=== PATIENT | female | born 1985 | race Hispanic/Latino ===

== ENCOUNTER → 2018-05-31 | Outpatient (CLI) | payer OTHER ==
--- NOTE | 2018-05-31 12:33 | Diagnostic Imaging Report ---
Exam: Abdominal film Clinical History: Calculus of kidney Comparison: MRI abdomen 11/14/2015 DISCUSSION: Frontal view of the abdomen shows a nonobstructive bowel gas pattern with minimal amount of retained stool.There are no dilated, air-filled loops of bowel. No radiopaque densities project over the renal shadows, expected course of the ureters or bladder. Multiple bilateral pelvic phleboliths are noted. No acute bony abnormalities. IMPRESSION: 1. Nonobstructive bowel gas pattern. 2. No suspicious calcifications project over the genitourinary system. The staff physician below has personally reviewed this exam on the date of dictation. Signed by: Dr. Lucas Carrasquillo M.D. on 05/31/2018 12:30 PM
== END ==
LOC: RAD 10:50
PROVIDERS: ATTEND Urology
DX: N20.0 Calculus of kidney (principal)
CPT/HCPCS: 74018

== ENCOUNTER → 2018-08-11 | Outpatient (CLI) | payer OTHER ==
[~2018-08-11] MED LIST: FUROSEMIDE INJ 10 MG/ML 4 ML VIAL ONE
--- NOTE | 2018-08-11 22:22 | Diagnostic Imaging Report ---
Renal Scan with Lasix [place]out Clinical information: 33 F with renal sclerosis and persistent renal calculi. Urethral sling procedure done in 03/2017. Comparison: Most recent prior renal scan with Lasix of 05/12/2017 Technique: Following intravenous administration of 11 mCi of Tc-99m MAG3, dynamic images of the kidneys in the posterior projection were obtained through 29 minutes. Lasix 40 mg was administered intravenously at 15 minutes post injection of the tracer. Report: Left kidney: Perfusion of the left kidney is prompt. The kidney has a normal reniform shape. Extraction of tracer from the blood pool is normal. Clearance of tracer from the renal parenchyma is prompt. The pelvicalyceal system is not dilated. Increased pooling of tracer is seen in the renal pelvis. Drainage of tracer from the pelvicalyceal system is adequate prior to administration of Lasix. No significant stasis of tracer is seen within the left ureter. Right kidney: Perfusion to the right kidney is prompt. The right kidney is generally smaller than the left kidney with narrowing of the lower pole. Extraction of tracer by the renal parenchyma is normal. Clearance of tracer from the renal parenchyma is prompt. The pelvicalyceal system is mildly dilated. Increased pooling of tracer within the pelvicalyceal system is seen, predominantly within the renal pelvis. Drainage of tracer from the pelvicalyceal system is adequate prior to administration of Lasix. No significant stasis of tracer is seen within the right ureter. Differential renal function: The left kidney contributes 57% of total renal function and the right kidney contributes 43% (normal 43-57%), previously, left 62% and right 38%. Impression: 1. The function of the left kidney is generally normal. No hydronephrosis is present. No physiologically significant obstruction of the renal collecting system is present. Appearance of the left kidney and the drainage pattern are unchanged compared to the prior study of 05/12/2017. 2. 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 The small size accounts for the decreased differential function of 43%. Mild hydronephrosis is present. No physiologically significant obstruction of the renal collecting system is present. The appearance of the kidney is unchanged compared to the prior study of 05/12/2017. The drainage pattern is improved compared to the prior study and this is likely related to hydration status. The higher differential renal function of 43% compared to 38% on the prior study is likely not statistically significant and may also be related to better hydration status on today's study. The differential function on an earlier study of 01/09/2015 was 42% and this also suggests that there has been neither interval deterioration or interval improvement in overall function of the right kidney. Signed by: Dr. Elsa Barrientos M.D. on 08/11/2018 10:19 PM
== END ==
LOC: NM 08:38
PROVIDERS: ATTEND Urology
DX: N26.9 Renal sclerosis, unspecified (principal); Z87.442 Personal history of urinary calculi
CPT/HCPCS: 78708; A9562; J1940

== ENCOUNTER → 2019-07-25 | Outpatient (CLI) | payer OTHER ==
--- NOTE | 2019-07-25 12:12 | Diagnostic Imaging Report ---
EXAM: US RENAL RETROPERITONEAL COMP DATE: 07/25/2019 9:47 AM INDICATION: CT abdomen from 04/01/2015 COMPARISON: None FINDINGS: The right kidney is normal in size measuring 9.7 x 4.6 x 3.2 cm with cortical thickness of 1.3 cm. Areas of cortical scarring/parenchymal loss noted. Cortical echogenicity is otherwise within normal limits. There is mild fullness of the renal pelvis which resolved after voiding. There is no evidence for solid renal mass, hydronephrosis, or shadowing calculi. The left kidney is normal in size measuring 11.3 x 6.1 x 4.9 cm with cortical thickness of 1.7 cm cortical echogenicity is within normal limits. There is no evidence for solid renal mass, hydronephrosis, or shadowing calculi. The urinary bladder is only partially distended demonstrates no significant abnormalities. Prevoid volume is 59.3 cc IMPRESSION: Areas of cortical scarring/parenchymal loss noted within the right kidney, as noted on prior examinations. Otherwise, unremarkable renal ultrasound examination. Signed by: Dr. Miguel Napier MD on 07/25/2019 12:09 PM
--- NOTE | 2019-07-25 12:15 | Diagnostic Imaging Report ---
EXAM: ABDOMEN-1VIEW (KUB) DATE: 07/25/2019 9:47 AM INDICATION: Calculus of kidney COMPARISON: 05/31/2018 IMPRESSION: Bowel gas pattern appears nonobstructive. No radiopaque stones/calcifications are identified over the renal shadows. Multiple phleboliths noted within the pelvis. No acute osseous abnormality identified. Signed by: Dr. Miguel Napier MD on 07/25/2019 12:11 PM
== END ==
LOC: US 09:36
PROVIDERS: ATTEND Urology
DX: N20.0 Calculus of kidney (principal)
CPT/HCPCS: 74018; 76770

== ENCOUNTER → 2020-07-15 | Outpatient (CLI) | payer OTHER | LOC: US 08:27 | PROVIDERS: ATTEND Urology | DX: N20.0 Calculus of kidney (principal) | CPT/HCPCS: 74018; 76770; 78708; A9562; J1940 ==